=== PATIENT | male | born 1955 | race African-American/Black ===

== ENCOUNTER 2016-11-17 05:50 | Day surgery (SDC) | payer MEDICARE, MEDICAID ==
[~2016-11-17] VITALS: Ht 182.9 cm; Wt 102.1 kg
[2016-11-17] MEDS ORDERED: LACTATED RINGERS 1,000 ML IV SCH (08:00)
[2016-11-17] MEDS ORDERED: BUPIVACAINE HCL/PF 0.5% (5MG/ML) 10ML ONE (09:00)
[2016-11-17] MEDS ORDERED: BACITRACIN ZINC 15GM TUBE TOP ONE (09:00)
[2016-11-17] MEDS ORDERED: MIDAZOLAM HCL 2 MG/2 ML VIAL ONE (09:20)
[2016-11-17] MEDS ORDERED: FENTANYL CITRATE/PF 50MCG/ML 2ML VIAL ONE (09:20)
[2016-11-17] MEDS ORDERED: HYDROMORPHONE HCL/PF 2MG/ML CPJ IV PRN (10:00)
[2016-11-17] MEDS ORDERED: ONDANSETRON HCL 4MG/2ML VIAL IV PRN (10:00)
[2016-11-17] MEDS ORDERED: MEPERIDINE HCL/PF 25MG/ML CPJ IV PRN (10:00)
[2016-11-17] MEDS ORDERED: LABETALOL HCL 20MG/4ML CARPUJECT IV PRN (10:00)
[2016-11-17] MEDS ORDERED: PROPOFOL 200MG/20ML VIAL IV ONE (10:20)
[2016-11-17] MEDS ORDERED: LIDOCAINE HCL 1% 20ML VIAL (Pyxis) INJ ONE (10:20)
[2016-11-17] MEDS ORDERED: SODIUM CHLORIDE 0.9% 10ML VIAL ONE (10:20)
[2016-11-17] MEDS ORDERED: CEFAZOLIN SODIUM 1000MG/VIAL ONE (10:20)
[2016-11-17] MEDS ORDERED: DEXAMETHASONE 4MG/ML 1ML VIAL ONE (10:20)
[2016-11-17] MEDS ORDERED: LABETALOL HCL 5MG/ML VIAL 20ML IV PRN (12:00)
[2016-11-17] MEDS ORDERED: HYDRALAZINE 20MG/ML VIAL IV NR (12:55)
[2016-11-17] MEDS ORDERED: CLON0.3T PO (13:27)
[2016-11-17] MEDS ORDERED: HYDR-3933 PO (13:27)
[2016-11-17] MEDS ORDERED: LISI40TA4 PO (13:27)
[2016-11-17] MEDS ORDERED: HYDR25TA PO (13:27)
== END 2016-11-17 14:30 | disposition home or self-care (01) ==
LOC: OR 05:50
PROVIDERS: ATTEND Urology
DX: N47.1 Phimosis (principal); N47.8 Other disorders of prepuce; I10 Essential (primary) hypertension; Z87.891 Personal history of nicotine dependence; Z91.010 Allergy to peanuts; Z91.018 Allergy to other foods
CPT/HCPCS: 54161; 71010; A4216; J0360; J0690; J1100; J2250; J3010; J3490; J7120; J2704

== ENCOUNTER 2019-02-25 05:02 | Emergency (ER) | payer MEDICARE, MEDICAID ==
[~2019-02-25] VITALS: Ht 180.3 cm; Wt 100.0 kg
[~2019-02-25 05:02] MED LIST: CLON0.3T PO; HYDR-3933 PO; HYDR25TA PO; LISI40TA4 PO
[2019-02-25] MEDS ORDERED: CLONIDINE 0.3MG TABLET PO ONE (06:15)
[2019-02-25] MEDS ORDERED: ACETAMINOPHEN 325MG TABLET PO ONE (06:30)
[2019-02-25 07:35] VITALS: BP 182/115
== END 2019-02-25 07:40 | disposition home or self-care (01) ==
LOC: ER 05:02
DX: I10 Essential (primary) hypertension (principal); M54.30 Sciatica, unspecified side; F17.210 Nicotine dependence, cigarettes, uncomplicated; Z76.0 Encounter for issue of repeat prescription; Z98.890 Other specified postprocedural states; Z71.6 Tobacco abuse counseling; Z91.010 Allergy to peanuts; Z88.8 Allergy status to other drugs, medicaments and biological substances
CPT/HCPCS: 99283; 99406

== ENCOUNTER 2019-03-26 08:41 | Emergency (ER) | payer MEDICARE, MEDICAID ==
[~2019-03-26] VITALS: Ht 180.3 cm; Wt 100.0 kg
[2019-03-26] MEDS ORDERED: LISINOPRIL 40MG TABLET PO ONE (14:30)
[2019-03-26] MEDS ORDERED: CLONIDINE 0.3MG TABLET PO ONE (14:30)
[2019-03-26 17:36] VITALS: BP 154/98
== END 2019-03-26 17:36 | disposition home or self-care (01) ==
LOC: ER 08:46
DX: I10 Essential (primary) hypertension (principal); Z88.8 Allergy status to other drugs, medicaments and biological substances; Z88.2 Allergy status to sulfonamides; Z79.899 Other long term (current) drug therapy
CPT/HCPCS: 99283

== ENCOUNTER 2019-08-10 12:09 | Emergency (ER) | payer MEDICAID, MEDICARE ==
[~2019-08-10] VITALS: Ht 180.3 cm; Wt 100.0 kg
[2019-08-10 14:30] VITALS: BP 155/89
== END 2019-08-10 14:32 | disposition home or self-care (01) ==
LOC: ER 12:09
DX: I10 Essential (primary) hypertension (principal); Z76.0 Encounter for issue of repeat prescription; Z91.010 Allergy to peanuts; Z88.8 Allergy status to other drugs, medicaments and biological substances
CPT/HCPCS: 99283

== ENCOUNTER 2019-10-20 08:53 | Emergency (ER) | payer MEDICARE ==
[~2019-10-20] VITALS: Ht 180.3 cm; Wt 102.0 kg
[2019-10-20 08:58] VITALS: BP 183/135
== END 2019-10-20 09:12 | disposition home or self-care (01) ==
LOC: ER 08:53
DX: I10 Essential (primary) hypertension (principal); Z79.899 Other long term (current) drug therapy; Z88.8 Allergy status to other drugs, medicaments and biological substances; Z76.0 Encounter for issue of repeat prescription
CPT/HCPCS: 99281; 99283

== ENCOUNTER 2019-12-09 04:58 | Emergency (ER) | payer MEDICARE ==
[~2019-12-09] VITALS: Ht 180.3 cm; Wt 105.0 kg
[2019-12-09 05:03] VITALS: BP 185/105
[2019-12-09] MEDS ORDERED: CLONIDINE 0.3MG TABLET PO ONE (05:30)
[2019-12-09] MEDS ORDERED: LISINOPRIL 40MG TABLET PO ONE (05:30)
== END 2019-12-09 06:07 | disposition home or self-care (01) ==
LOC: ER 04:58
DX: I10 Essential (primary) hypertension (principal); Z76.0 Encounter for issue of repeat prescription; Z88.8 Allergy status to other drugs, medicaments and biological substances
CPT/HCPCS: 99283

== ENCOUNTER 2020-05-21 12:28 | Inpatient (IN) | payer MEDICARE ==
[~2020-05-21] VITALS: Ht 180.3 cm; Wt 101.7 kg
[~2020-05-21 12:28] MED LIST changes: +LISI40TA13 PO; -LISI40TA4 PO
[2020-05-21] MEDS ORDERED: ACETAMINOPHEN 325MG TABLET PO STA (12:55)
[2020-05-21] MEDS ORDERED: DILTIAZEM HCL 5MG/ML 5ML VIAL IV ONE (13:00)
[2020-05-21] MEDS ORDERED: SODIUM CHLORIDE 0.9% 1,000 ML IV ONE (13:00)
[2020-05-21 13:41] LABS: HEMATOCRIT. 48.2 % (42.0-52.0); MEAN CORPUSCULAR HEMOGLOBIN 30.3 pg (28.0-32.0); MEAN CORPUSCULAR VOLUME 91.5 fL (80.0-94.0); MEAN PLATELET VOLUME 9.5 fl (7.4-10.4); PLATELET 154 x1000/uL (130-400); RED BLOOD CELL COUNT 5.27 mill/uL (4.7-6.1); RED CELL DISTRIBUTION WIDTH 13.5 % (11.6-14.6)
[2020-05-21 13:48] LABS: CHLORIDE 107 mEq/L (98-107)
[2020-05-21 13:51] LABS: D-DIMER 2.58 mg/L FEU (<0.50); INR 1.1; PROTHROMBIN TIME 11.5 sec (9.6-11.0)
[2020-05-21 14:11] LABS: PLATELET ESTIMATE NORMAL
[2020-05-21] MEDS ORDERED: DILTIAZEM HCL 125 MG in DEXT 5% WATER 100 ML IV ONE (14:30)
[2020-05-21] MEDS ORDERED: ASPIRIN 325MG EC TABLET PO ONE (14:30)
[2020-05-21] MEDS: DILTIAZEM HCL 60MG TABLET PO SCH ×2 (16:34→23:18)
[2020-05-21] MEDS ORDERED: TRAZODONE HCL 50MG TABLET PO PRN (16:45)
[2020-05-21] MEDS: ENOXAPARIN 100MG/ML SYR SUBCUT SCH (16:48)
[2020-05-21 17:21] VITALS: BP 158/85
[2020-05-21 18:01] VITALS: BP 158/85
[2020-05-21 18:30] LABS: CLARITY URINE CLEAR (CLEAR); COLOR URINE YELLOW (YELLOW); KETONES URINE 1+ (NEGATIVE); LEUKOCYTE ESTERASE URINE NEGATIVE (NEGATIVE); NITRITE URINE NEGATIVE (NEGATIVE); OCCULT BLOOD URINE 2+ (NEGATIVE); PROTEIN URINE 1+ (NEGATIVE); SPECIFIC GRAVITY URINE 1.015 (1.005-1.030)
[2020-05-21 19:21] VITALS: BP 163/103
[2020-05-21] MEDS ORDERED: DILTIAZEM HCL 5MG/ML 5ML VIAL IV NR (19:45)
[2020-05-21 21:04] VITALS: BP 152/101
[2020-05-21] MEDS: DILTIAZEM HCL 125 MG in DEXT 5% WATER 100 ML IV SCH (21:05)
[2020-05-21 22:04] VITALS: BP 141/90
[2020-05-21 23:04] VITALS: BP 140/88
[2020-05-21] MEDS: ACETAMINOPHEN 325MG TABLET PO PRN (23:23)
[2020-05-22] VITALS (16 sets, daily range): BP systolic 102–173; BP diastolic 53–111
[2020-05-22] MEDS: ENOXAPARIN 100MG/ML SYR SUBCUT SCH ×2 (06:12→16:17)
[2020-05-22] MEDS: DILTIAZEM HCL 60MG TABLET PO SCH (06:22)
[2020-05-22 06:27] LABS: BASOPHILS % 0.3 % (0.0-2.0); EOSINOPHILS % 0.1 % (0.0-5.0); HEMATOCRIT. 41.8 % (42.0-52.0); HEMOGLOBIN. 13.8 g/dL (14.0-18.0); LYMPHOCYTES % 10.7 % (20.0-50.0); MEAN CORPUSCULAR HEMOGLOBIN 30.4 pg (28.0-32.0); MEAN CORPUSCULAR VOLUME 91.8 fL (80.0-94.0); MEAN PLATELET VOLUME 9.6 fl (7.4-10.4); MONOCYTES % 13.6 % (2.0-8.0); NEUTROPHILS % 75.3 % (40.0-76.0); PLATELET 144 x1000/uL (130-400); RED BLOOD CELL COUNT 4.55 mill/uL (4.7-6.1); RED CELL DISTRIBUTION WIDTH 13.7 % (11.6-14.6)
[2020-05-22 06:34] LABS: CHLORIDE 106 mEq/L (98-107)
[2020-05-22 06:42] LABS: HDL CHOLESTEROL 61 mg/dL (40-59); PHOSPHORUS 2.7 mg/dL (2.5-4.9)
[2020-05-22 06:44] LABS: LDL CHOLESTEROL 93 mg/dL (5-100)
[2020-05-22 06:45] LABS: TOTAL IRON BINDING CAPACITY 325 ug/dL (250-450)
[2020-05-22 06:59] LABS: HEPATITIS B SURFACE ANTIGEN NEGATIVE
[2020-05-22 07:03] LABS: T4 FREE 1.13 ng/dL (0.76-1.46)
[2020-05-22 07:04] LABS: VITAMIN B12 SERUM 234 pg/mL (211-911)
[2020-05-22] MEDS: ASPIRIN 81MG EC TABLET PO SCH (08:11)
[2020-05-22] MEDS: DILTIAZEM HCL 125 MG in DEXT 5% WATER 100 ML IV SCH (09:31)
[2020-05-22] MEDS: ACETAMINOPHEN 325MG TABLET PO PRN (09:33)
[2020-05-22] MEDS: HYDRALAZINE 20MG/ML VIAL IV PRN ×2 (10:28→19:35)
[2020-05-22] MEDS ORDERED: CLONIDINE 0.1MG TABLET PO SCH ×2 (11:30→14:00)
[2020-05-22] MEDS: FERROUS SULFATE 325MG TABLET PO SCH ×2 (12:00→18:34)
[2020-05-22] MEDS ORDERED: DILTIAZEM HCL 90MG TABLET PO SCH (14:00)
[2020-05-22] MEDS ORDERED: TRAMADOL 50MG TABLET PO PRN (15:30)
[2020-05-22] MEDS ORDERED: LOSARTAN POTASSIUM 25 MG TABLET PO ONE (16:00)
[2020-05-22] MEDS: LOSARTAN POTASSIUM 25 MG TABLET PO SCH (16:17)
[2020-05-22] MEDS: APIXABAN 5 MG TABLET PO SCH (18:34)
[2020-05-22] MEDS: DILTIAZEM HCL 180MG CAPSULE CD 24HR PO SCH (18:34)
[2020-05-22] MEDS: ONDANSETRON HCL 4MG/2ML INJ IV PRN (21:08)
[2020-05-22] MEDS: CLONIDINE 0.2MG TABLET PO SCH (22:05)
[2020-05-23] VITALS (64 sets, daily range): BP systolic 103–208; BP diastolic 57–128
[2020-05-23] MEDS: ACETAMINOPHEN 325MG TABLET PO PRN (01:56)
[2020-05-23] MEDS: HYDRALAZINE 20MG/ML VIAL IV PRN ×4 (04:23→15:02)
[2020-05-23] MEDS ORDERED: DILTIAZEM HCL 5MG/ML 5ML VIAL IV NR (05:15)
[2020-05-23] MEDS ORDERED: DILTIAZEM HCL 125 MG in DEXT 5% WATER 100 ML IV PRN (05:15)
[2020-05-23] MEDS: ONDANSETRON HCL 4MG/2ML INJ IV PRN ×3 (05:38→16:37)
[2020-05-23] MEDS: CLONIDINE 0.2MG TABLET PO SCH ×3 (06:00→21:24)
[2020-05-23] MEDS ORDERED: DIGOXIN 500MCG/2ML AMP IV NR (08:15)
[2020-05-23] MEDS ORDERED: IPRATROPIUM BROMIDE (0.02%) 0.5MG/2.5ML NEB HHN PRN (08:45)
[2020-05-23] MEDS ORDERED: IPRATROPIUM BROMIDE (0.02%) 0.5MG/2.5ML NEB ONE (08:49)
[2020-05-23] MEDS: APIXABAN 5 MG TABLET PO SCH (09:00)
[2020-05-23] MEDS: DILTIAZEM HCL 180MG CAPSULE CD 24HR PO SCH ×2 (09:00→16:38)
[2020-05-23] MEDS: LOSARTAN POTASSIUM 25 MG TABLET PO SCH (09:00)
[2020-05-23] MEDS: FERROUS SULFATE 325MG TABLET PO SCH ×2 (09:00→16:38)
[2020-05-23] MEDS: ASPIRIN 81MG EC TABLET PO SCH (09:00)
[2020-05-23 09:08] LABS: BG BASE EXCESS -0.9 mmol/L (-2.0-2.0); BG CARBOXYHEMOGLOBIN 0.1 % (0.5-1.5); BG DEOXYHEMOGLOBIN 1.1 % (0.0-5.0); BG FRACTION INSPIRED OXYGEN 32; BG HCO3 ACT 18.2 mmol/L (22.0-26.0); BG METHEMOGLOBIN 0.3 % (0.0-1.5); BG OXYGEN SATURATION 98.9 % (92.0-98.5); BG OXYHEMOGLOBIN 98.5 % (94.0-97.0); BG PCO2 19.9 mmHg (35.0-45.0); BG PH 7.578 (7.350-7.450); BG PO2 136.9 mmHg (75.0-100.0); BG SAMPLE SITE RIGHT RADIAL; BG VENT MODE NASAL CANNULA
[2020-05-23 09:23] LABS: HEMATOCRIT. 46.5 % (42.0-52.0); HEMOGLOBIN. 15.3 g/dL (14.0-18.0); MEAN CORPUSCULAR VOLUME 91.2 fL (80.0-94.0); MEAN PLATELET VOLUME 9.2 fl (7.4-10.4); PLATELET 219 x1000/uL (130-400); RED CELL DISTRIBUTION WIDTH 13.7 % (11.6-14.6)
[2020-05-23 09:30] LABS: CHLORIDE 104 mEq/L (98-107)
[2020-05-23] MEDS ORDERED: METOCLOPRAMIDE HCL 10MG/2ML VIAL IV NR (09:30)
[2020-05-23] MEDS ORDERED: METOCLOPRAMIDE HCL 10MG/2ML VIAL IV PRN (09:30)
[2020-05-23] MEDS ORDERED: DILTIAZEM HCL 120MG TABLET PO SCH (09:45)
[2020-05-23] MEDS ORDERED: ENALAPRIL 2.5MG/2ML VIAL 2ML IV SCH (09:45)
[2020-05-23] MEDS ORDERED: HYDRALAZINE 20MG/ML VIAL IV SCH (09:45)
[2020-05-23] MEDS ORDERED: LIDOCAINE HCL/PF 1% 2ML VIAL ONE (10:00)
[2020-05-23] MEDS ORDERED: DOXAZOSIN MESYLATE 2MG TABLET PO NR (10:00)
[2020-05-23 10:33] LABS: AMYLASE 55 IU/L (25-115)
[2020-05-23] MEDS ORDERED: LORAZEPAM 2MG/ML CPJ IV PRN ×2 (10:45→22:45)
[2020-05-23] MEDS ORDERED: LORAZEPAM 2MG/ML CPJ IV NR ×2 (10:45→19:00)
[2020-05-23 11:01] LABS: *AMPHETAMINES SCREEN URINE NEGATIVE (NEGATIVE)
[2020-05-23 11:02] LABS: *BARBITURATES SCREEN URINE NEGATIVE (NEGATIVE); *BENZODIAZEPINES SCREEN URINE NEGATIVE (NEGATIVE); *COCAINE SCREEN URINE NEGATIVE (NEGATIVE); CANNABINOID URINE SCREEN NEGATIVE (NEGATIVE); METHADONE URINE SCREEN NEGATIVE (NEGATIVE); OPIATES URINE SCREEN NEGATIVE (NEGATIVE); PHENCYCLIDINE URINE SCREEN NEGATIVE (NEGATIVE)
[2020-05-23 11:14] LABS: PLATELET ESTIMATE NORMAL
[2020-05-23] MEDS: NITROPRUSSIDE 100 MG in DEXT 5% WATER 246 ML IV PRN ×2 (11:25→20:01)
[2020-05-23] MEDS: DILTIAZEM HCL 125 MG in DEXT 5% WATER 100 ML IV PRN ×2 (12:18→21:25)
[2020-05-23] MEDS ORDERED: POTASSIUM CHLORIDE INJ 40 MEQ in DEXT 5% WATER 250 ML IV NR (12:30)
[2020-05-23] MEDS: DOXAZOSIN MESYLATE 2MG TABLET PO SCH ×2 (14:04→16:38)
[2020-05-23] MEDS: SODIUM CHLORIDE 0.9% 1,000 ML IV SCH (14:55)
[2020-05-23] MEDS ORDERED: ENOXAPARIN 100MG/ML SYR SUBCUT NR (16:00)
[2020-05-23] MEDS ORDERED: FAMOTIDINE 20MG/2ML VIAL IV SCH (21:00)
[2020-05-23] MEDS: IPRATROPIUM BROMIDE (0.02%) 0.5MG/2.5ML NEB HHN SCH (21:02)
[2020-05-24 00:18] VITALS: BP 138/42
[2020-05-24 00:30] VITALS: BP 144/93
[2020-05-24 00:47] VITALS: BP 140/93
[2020-05-24] MEDS: IPRATROPIUM BROMIDE (0.02%) 0.5MG/2.5ML NEB HHN SCH (02:17)
[2020-05-24] MEDS: SODIUM CHLORIDE 0.9% 1,000 ML IV SCH (03:50)
[2020-05-24] MEDS: NITROPRUSSIDE 100 MG in DEXT 5% WATER 246 ML IV PRN (04:59)
[2020-05-24] MEDS ORDERED: METOPROLOL TARTRATE 5MG/5ML VIAL IV NR (20:30)
== END 2020-05-24 05:50 | disposition left against medical advice (07) | DRG 280 ==
LOC: ER 12:28 → 3WST 14:32 → EDBEDREQSVC 14:35 → EDBEDREQ 14:35 → ENRESERV 16:10 → CVICU 05-23 11:14
PROVIDERS: ADMIT Family Medicine Adult Medicine; ATTEND Family Medicine Adult Medicine
DX: I21.A1 Myocardial infarction type 2 (principal); J96.00 Acute respiratory failure, unspecified whether with hypoxia or hypercapnia; N17.9 Acute kidney failure, unspecified; R65.10 Systemic inflammatory response syndrome (SIRS) of non-infectious origin without acute organ dysfunction; I16.1 Hypertensive emergency; I48.91 Unspecified atrial fibrillation; E80.6 Other disorders of bilirubin metabolism; R74.01 Elevation of levels of liver transaminase levels; F41.9 Anxiety disorder, unspecified; E87.6 Hypokalemia; R79.89 Other specified abnormal findings of blood chemistry; Z53.29 Procedure and treatment not carried out because of patient's decision for other reasons; I11.9 Hypertensive heart disease without heart failure; Z20.822 Contact with and (suspected) exposure to COVID-19; D64.9 Anemia, unspecified; Z91.14 Patient's other noncompliance with medication regimen; Z87.891 Personal history of nicotine dependence; Z88.8 Allergy status to other drugs, medicaments and biological substances; Z91.010 Allergy to peanuts; Z79.899 Other long term (current) drug therapy
CPT/HCPCS: 36415; 36600; 71045; 74018; 76700; 78580; 80048; 80053; 80061; 80076; 80305; 81003; 82150; 82375; 82550; 82553; 82607; 82805; 82962; 83540; 83550; 83605; 83735; 83880; 84100; 84145; 84439; 84443; 84481; 84484; 85025; 85044; 85379; 86803; 87340; 87426; 87804; 93005; 93306; 93970; 94640; 99291; J0360; J1160; J1650; J2060; J2270; J2405; J2765; J3480; J3490; J7030; J7060

== ENCOUNTER 2020-05-24 17:31 | Inpatient (IN) | payer MEDICARE ==
[~2020-05-24] VITALS: Ht 180.3 cm; Wt 100.0 kg
[~2020-05-24 17:31] MED LIST changes: -HYDR-3933 PO
[2020-05-24] MEDS ORDERED: DILTIAZEM HCL 5MG/ML 5ML VIAL IV ONE ×2 (18:15→18:45)
[2020-05-24 18:21] LABS: HEMATOCRIT. 46.3 % (42.0-52.0); HEMOGLOBIN. 15.5 g/dL (14.0-18.0); MEAN CORPUSCULAR HEMOGLOBIN 30.6 pg (28.0-32.0); MEAN CORPUSCULAR VOLUME 91.4 fL (80.0-94.0); MEAN PLATELET VOLUME 8.7 fl (7.4-10.4); PLATELET 242 x1000/uL (130-400); RED BLOOD CELL COUNT 5.06 mill/uL (4.7-6.1); RED CELL DISTRIBUTION WIDTH 13.9 % (11.6-14.6)
[2020-05-24 19:01] LABS: PLATELET ESTIMATE NORMAL
[2020-05-24] MEDS ORDERED: DILTIAZEM HCL 125 MG in DEXT 5% WATER 100 ML IV ONE (19:15)
[2020-05-24] MEDS ORDERED: DILTIAZEM HCL 125 MG in DEXTROSE 5% WATER 125 ML IV PRN (20:00)
[2020-05-24] MEDS ORDERED: DIGOXIN 500MCG/2ML AMP IV ONE (20:30)
[2020-05-24] MEDS ORDERED: ESMOLOL 2500MG PREMIX 250 ML IV ONE (20:30)
[2020-05-24] MEDS ORDERED: NITROGLYCERIN 0.1MG/HR PATCH TOP NR (21:00)
[2020-05-24] MEDS ORDERED: LORAZEPAM 2MG/ML CPJ IV ONE (21:45)
[2020-05-24] MEDS ORDERED: SODIUM CHLORIDE 0.9% INJ 3ML FLUSH IVF SCH (22:00)
[2020-05-24] MEDS ORDERED: ACETAMINOPHEN 325MG TABLET PO PRN (22:00)
[2020-05-24] MEDS ORDERED: GUAIFENESIN 200MG/10ML SUGAR FREE UDC PO PRN (22:00)
[2020-05-24] MEDS ORDERED: MAGNESIUM/ALUMINUM HYDROXIDE/SIMETHICONE 30ML UDC PO PRN (22:00)
[2020-05-24] MEDS ORDERED: LORAZEPAM 2MG/ML CPJ IV PRN (22:00)
[2020-05-24] MEDS ORDERED: HYDRALAZINE 20MG/ML VIAL IV PRN (22:00)
[2020-05-24] MEDS ORDERED: ONDANSETRON HCL 4MG/2ML INJ IV PRN (22:00)
[2020-05-24] MEDS ORDERED: DOCUSATE SODIUM 100MG CAPSULE PO PRN (22:00)
[2020-05-24] MEDS ORDERED: ESMOLOL 2500MG PREMIX 250 ML IV PRN (22:00)
[2020-05-24] MEDS ORDERED: MORPHINE SULFATE 2 MG/ML CPJ (NOT FOR IM USE) IV PRN (22:00)
[2020-05-24] MEDS ORDERED: IPRATROPIUM/ALBUTEROL 0.5-3(2.5)MG/3ML NEB HHN PRN (22:00)
[2020-05-24] MEDS ORDERED: HYDROCODONE/ACETAMINOPHEN 5/325MG TABLET PO PRN (22:00)
[2020-05-24] MEDS: ESMOLOL 2500MG PREMIX 250 ML IV ONE ×2 (22:08→22:10)
[2020-05-24 23:43] LABS: CREATINE KINASE MB FRACTION 10.9 ng/mL (0.5-3.6)
[2020-05-25 00:28] VITALS: BP 198/98
[2020-05-25] MEDS ORDERED: ENOXAPARIN 30MG/0.3ML SYR SUBCUT SCH (09:00)
== END 2020-05-25 07:16 | disposition left against medical advice (07) | DRG 281 ==
LOC: ER 17:31 → MICUSO 20:48
PROVIDERS: ADMIT Internal Medicine; ATTEND Internal Medicine
DX: I21.4 Non-ST elevation (NSTEMI) myocardial infarction (principal); I47.1 Supraventricular tachycardia; I16.1 Hypertensive emergency; R65.10 Systemic inflammatory response syndrome (SIRS) of non-infectious origin without acute organ dysfunction; N17.9 Acute kidney failure, unspecified; I10 Essential (primary) hypertension; F41.9 Anxiety disorder, unspecified; Z53.29 Procedure and treatment not carried out because of patient's decision for other reasons; I48.91 Unspecified atrial fibrillation; D64.9 Anemia, unspecified; Z91.14 Patient's other noncompliance with medication regimen; Z79.899 Other long term (current) drug therapy
CPT/HCPCS: 36415; 71045; 80048; 82550; 82553; 84484; 85025; 93005; 93970; 99291; J0360; J1160; J2060; J2270; J3490; J7060

== ENCOUNTER 2020-05-26 10:35 | Inpatient (IN) | payer MEDICARE ==
[2020-05-26] VITALS (13 sets, daily range): BP systolic 173–220; BP diastolic 91–139
[~2020-05-26] VITALS: Ht 180.3 cm; Wt 93.5 kg
[2020-05-26] MEDS ORDERED: DILTIAZEM HCL 5MG/ML 5ML VIAL IV ONE ×2 (11:00→14:30)
[2020-05-26 11:34] LABS: BASOPHILS % 0.7 % (0.0-2.0); EOSINOPHILS % 0.4 % (0.0-5.0); HEMATOCRIT. 43.4 % (42.0-52.0); HEMOGLOBIN. 14.5 g/dL (14.0-18.0); LYMPHOCYTES % 14.3 % (20.0-50.0); MEAN CORPUSCULAR HEMOGLOBIN 30.5 pg (28.0-32.0); MEAN CORPUSCULAR VOLUME 91.1 fL (80.0-94.0); MEAN PLATELET VOLUME 8.8 fl (7.4-10.4); MONOCYTES % 12.8 % (2.0-8.0); NEUTROPHILS % 71.8 % (40.0-76.0); PLATELET 316 x1000/uL (130-400); RED BLOOD CELL COUNT 4.77 mill/uL (4.7-6.1); RED CELL DISTRIBUTION WIDTH 13.8 % (11.6-14.6)
[2020-05-26 11:43] LABS: CHLORIDE 108 mEq/L (98-107)
[2020-05-26] MEDS ORDERED: DILTIAZEM HCL 120MG CAPSULE CD 24HR PO ONE (11:45)
[2020-05-26] MEDS ORDERED: DILTIAZEM HCL 125 MG in DEXT 5% WATER 100 ML IV ONE ×2 (12:30→13:00)
[2020-05-26] MEDS ORDERED: ENOXAPARIN 80MG/0.8ML SYR SUBCUT ONE (14:30)
[2020-05-26] MEDS ORDERED: ACETAMINOPHEN 325MG TABLET PO PRN (14:45)
[2020-05-26] MEDS ORDERED: DOCUSATE SODIUM 100MG CAPSULE PO PRN (14:45)
[2020-05-26] MEDS ORDERED: MAGNESIUM/ALUMINUM HYDROXIDE/SIMETHICONE 30ML UDC PO PRN (14:45)
[2020-05-26] MEDS ORDERED: IPRATROPIUM/ALBUTEROL 0.5-3(2.5)MG/3ML NEB HHN PRN (14:45)
[2020-05-26] MEDS ORDERED: DILTIAZEM HCL 125 MG in DEXT 5% WATER 100 ML IV PRN (14:45)
[2020-05-26] MEDS ORDERED: GUAIFENESIN 200MG/10ML SUGAR FREE UDC PO PRN (14:45)
[2020-05-26] MEDS: ONDANSETRON HCL 4MG/2ML INJ IV PRN ×2 (16:56→22:09)
[2020-05-26] MEDS: LORAZEPAM 2MG/ML CPJ IV PRN ×2 (17:25→23:48)
[2020-05-26] MEDS: HYDRALAZINE 20MG/ML VIAL IV PRN ×2 (17:41→23:58)
[2020-05-26] MEDS: CLONIDINE 0.1MG TABLET PO PRN (19:10)
[2020-05-26] MEDS ORDERED: ENOXAPARIN 40MG/0.4ML SYR SUBCUT NR ×2 (22:00)
[2020-05-26] MEDS: MORPHINE SULFATE 2 MG/ML CPJ (NOT FOR IM USE) IV PRN (22:10)
[2020-05-26] MEDS: SODIUM CHLORIDE 0.9% INJ 3ML FLUSH IVF SCH (22:10)
[2020-05-26] MEDS ORDERED: HYDRALAZINE 20MG/ML VIAL IV SCH (22:30)
[2020-05-26] MEDS: DILTIAZEM HCL 125 MG in DEXT 5% WATER 100 ML IV PRN (22:40)
[2020-05-26] MEDS: HYDROCODONE/ACETAMINOPHEN 5/325MG TABLET PO PRN (23:58)
[2020-05-27] VITALS (95 sets, daily range): BP systolic 88–205; BP diastolic 38–137
[2020-05-27 00:37] LABS: CREATINE KINASE MB FRACTION 17.8 ng/mL (0.5-3.6)
[2020-05-27] MEDS: CLONIDINE 0.1MG TABLET PO PRN ×2 (01:20→07:19)
[2020-05-27] MEDS ORDERED: HYDRALAZINE HCL 25MG TABLET PO SCH (03:00)
[2020-05-27] MEDS: ONDANSETRON HCL 4MG/2ML INJ IV PRN (04:19)
[2020-05-27] MEDS: SODIUM CHLORIDE 0.9% INJ 3ML FLUSH IVF SCH ×3 (05:49→21:20)
[2020-05-27 06:18] LABS: BASOPHILS % 0.3 % (0.0-2.0); EOSINOPHILS % 0.2 % (0.0-5.0); HEMATOCRIT. 41.5 % (42.0-52.0); HEMOGLOBIN. 13.8 g/dL (14.0-18.0); LYMPHOCYTES % 13.2 % (20.0-50.0); MEAN CORPUSCULAR HEMOGLOBIN 30.2 pg (28.0-32.0); MEAN CORPUSCULAR VOLUME 91.1 fL (80.0-94.0); MEAN PLATELET VOLUME 8.1 fl (7.4-10.4); MONOCYTES % 11.5 % (2.0-8.0); NEUTROPHILS % 74.8 % (40.0-76.0); PLATELET 332 x1000/uL (130-400); RED BLOOD CELL COUNT 4.56 mill/uL (4.7-6.1); RED CELL DISTRIBUTION WIDTH 13.9 % (11.6-14.6)
[2020-05-27 06:30] LABS: CHLORIDE 107 mEq/L (98-107)
[2020-05-27 06:39] LABS: CREATINE KINASE 443 IU/L (39-308)
[2020-05-27 06:41] LABS: CREATINE KINASE MB FRACTION 13.1 ng/mL (0.5-3.6)
[2020-05-27] MEDS: DILTIAZEM HCL 125 MG in DEXT 5% WATER 100 ML IV PRN ×2 (06:54→16:25)
[2020-05-27] MEDS: HYDRALAZINE 20MG/ML VIAL IV PRN ×2 (07:56→17:23)
[2020-05-27] MEDS ORDERED: POTASSIUM CHLORIDE 20MEQ TABLET SR PO SCH (08:15)
[2020-05-27] MEDS ORDERED: ONDANSETRON HCL 4MG/2ML INJ IV PRN (08:45)
[2020-05-27] MEDS ORDERED: ENOXAPARIN 40MG/0.4ML SYR SUBCUT SCH (09:00)
[2020-05-27] MEDS: HYDRALAZINE HCL 25MG TABLET PO PRN (09:47)
[2020-05-27] MEDS ORDERED: DILTIAZEM HCL 120MG CAPSULE CD 24HR PO SCH (10:45)
[2020-05-27] MEDS: DOXAZOSIN MESYLATE 2MG TABLET PO SCH ×2 (11:43→16:08)
[2020-05-27] MEDS: ENOXAPARIN 100MG/ML SYR SUBCUT SCH (12:21)
[2020-05-27] MEDS: MORPHINE SULFATE 2 MG/ML CPJ (NOT FOR IM USE) IV PRN (15:13)
[2020-05-27] MEDS ORDERED: MAGNESIUM/ALUMINUM HYDROXIDE/SIMETHICONE 30ML UDC PO PRN (16:00)
[2020-05-27] MEDS: PANTOPRAZOLE SODIUM 40 MG/VIAL IV SCH (16:07)
[2020-05-27] MEDS: HYDROCODONE/ACETAMINOPHEN 5/325MG TABLET PO PRN ×2 (16:08→21:28)
[2020-05-27] MEDS ORDERED: ENOXAPARIN 100MG/ML SYR SUBCUT SCH (20:00)
[2020-05-27] MEDS: DILTIAZEM HCL 180MG CAPSULE CD 24HR PO SCH (21:18)
[2020-05-28] VITALS (86 sets, daily range): BP systolic 116–182; BP diastolic 66–110
[2020-05-28] MEDS: ENOXAPARIN 100MG/ML SYR SUBCUT SCH ×3 (00:15→21:34)
[2020-05-28] MEDS: DILTIAZEM HCL 125 MG in DEXT 5% WATER 100 ML IV PRN (04:43)
[2020-05-28] MEDS: SODIUM CHLORIDE 0.9% INJ 3ML FLUSH IVF SCH ×3 (05:45→21:34)
[2020-05-28 05:53] LABS: BASOPHILS % 0.9 % (0.0-2.0); EOSINOPHILS % 0.4 % (0.0-5.0); HEMATOCRIT. 41.4 % (42.0-52.0); HEMOGLOBIN. 13.6 g/dL (14.0-18.0); LYMPHOCYTES % 15.1 % (20.0-50.0); MEAN CORPUSCULAR HEMOGLOBIN 29.9 pg (28.0-32.0); MEAN CORPUSCULAR VOLUME 90.6 fL (80.0-94.0); MEAN PLATELET VOLUME 7.9 fl (7.4-10.4); MONOCYTES % 10.5 % (2.0-8.0); NEUTROPHILS % 73.1 % (40.0-76.0); PLATELET 358 x1000/uL (130-400); RED BLOOD CELL COUNT 4.57 mill/uL (4.7-6.1); RED CELL DISTRIBUTION WIDTH 13.7 % (11.6-14.6)
[2020-05-28 06:04] LABS: PHOSPHORUS 3.6 mg/dL (2.5-4.9)
[2020-05-28] MEDS: PANTOPRAZOLE SODIUM 40 MG/VIAL IV SCH (08:36)
[2020-05-28] MEDS: DOXAZOSIN MESYLATE 2MG TABLET PO SCH ×2 (08:37→16:47)
[2020-05-28] MEDS: DILTIAZEM HCL 180MG CAPSULE CD 24HR PO SCH ×2 (08:37→21:33)
[2020-05-28] MEDS ORDERED: POTASSIUM CHLORIDE 20MEQ TABLET SR PO NR (09:15)
[2020-05-28] MEDS ORDERED: POTASSIUM CHLORIDE 20MEQ TABLET SR PO ONE (09:30)
[2020-05-28 12:12] LABS: CLARITY URINE CLEAR (CLEAR); COLOR URINE YELLOW (YELLOW); KETONES URINE 1+ (NEGATIVE); LEUKOCYTE ESTERASE URINE NEGATIVE (NEGATIVE); NITRITE URINE NEGATIVE (NEGATIVE); OCCULT BLOOD URINE TRACE (NEGATIVE); PH URINE 5.5 (4.5-8.0); PROTEIN URINE 1+ (NEGATIVE); SPECIFIC GRAVITY URINE 1.029 (1.005-1.030)
[2020-05-28 12:43] LABS: *AMPHETAMINES SCREEN URINE NEGATIVE (NEGATIVE)
[2020-05-28 12:44] LABS: *BARBITURATES SCREEN URINE NEGATIVE (NEGATIVE); *BENZODIAZEPINES SCREEN URINE NEGATIVE (NEGATIVE); *COCAINE SCREEN URINE NEGATIVE (NEGATIVE)
[2020-05-28 12:45] LABS: CANNABINOID URINE SCREEN NEGATIVE (NEGATIVE); METHADONE URINE SCREEN NEGATIVE (NEGATIVE); OPIATES URINE SCREEN PRESUMTIVE POSITIVE (NEGATIVE); PHENCYCLIDINE URINE SCREEN NEGATIVE (NEGATIVE)
[2020-05-29] VITALS (29 sets, daily range): BP systolic 125–175; BP diastolic 70–111
[2020-05-29] MEDS: HYDRALAZINE HCL 25MG TABLET PO PRN (03:18)
[2020-05-29] MEDS: SODIUM CHLORIDE 0.9% INJ 3ML FLUSH IVF SCH (06:00)
[2020-05-29 06:55] LABS: BASOPHILS % 0.7 % (0.0-2.0); EOSINOPHILS % 0.6 % (0.0-5.0); HEMATOCRIT. 36.9 % (42.0-52.0); HEMOGLOBIN. 12.6 g/dL (14.0-18.0); LYMPHOCYTES % 19.1 % (20.0-50.0); MEAN CORPUSCULAR HEMOGLOBIN 30.9 pg (28.0-32.0); MEAN CORPUSCULAR VOLUME 90.5 fL (80.0-94.0); MONOCYTES % 11.4 % (2.0-8.0); NEUTROPHILS % 68.2 % (40.0-76.0); PLATELET 353 x1000/uL (130-400); RED BLOOD CELL COUNT 4.08 mill/uL (4.7-6.1); RED CELL DISTRIBUTION WIDTH 13.8 % (11.6-14.6)
[2020-05-29 07:01] LABS: PROTHROMBIN TIME 11.1 sec (9.6-11.0)
[2020-05-29] MEDS: CLONIDINE 0.1MG TABLET PO PRN (07:01)
[2020-05-29 07:18] LABS: PHOSPHORUS 2.8 mg/dL (2.5-4.9)
[2020-05-29] MEDS: DILTIAZEM HCL 180MG CAPSULE CD 24HR PO SCH (08:50)
[2020-05-29] MEDS: PANTOPRAZOLE SODIUM 40 MG/VIAL IV SCH (08:50)
[2020-05-29] MEDS: ENOXAPARIN 100MG/ML SYR SUBCUT SCH (08:51)
[2020-05-29] MEDS: DOXAZOSIN MESYLATE 2MG TABLET PO SCH (08:51)
[2020-05-29] MEDS ORDERED: HYDRALAZINE HCL 100MG TABLET PO SCH (09:00)
[2020-05-29] MEDS ORDERED: POTASSIUM CHLORIDE 20MEQ/PACKET PO SCH (09:00)
[2020-05-29 09:30] LABS: TOTAL IRON BINDING CAPACITY 264 ug/dL (250-450)
[2020-05-31 05:09] LABS: DOPAMINE PLASMA 138 pg/mL (0-48); EPINEPHRINE PLASMA 186 pg/mL (0-62); NOREPINEPHRINE PLASMA 2252 pg/mL (0-874)
== END 2020-05-29 13:15 | disposition home or self-care (01) | DRG 308 ==
LOC: ER 11:05 → CVICU 13:04 → EDBEDREQ 13:13 → EDBEDREQSVC 13:13 → CANRESERV 13:36 → ENRESERV 13:36 → EDBEDREQSVC 15:27 → ENRESERV 20:02
PROVIDERS: ADMIT Internal Medicine; ATTEND Internal Medicine
DX: I48.91 Unspecified atrial fibrillation (principal); N17.0 Acute kidney failure with tubular necrosis; M62.82 Rhabdomyolysis; E87.6 Hypokalemia; I13.10 Hypertensive heart and chronic kidney disease without heart failure, with stage 1 through stage 4 chronic kidney disease, or unspecified chronic kidney disease; N18.9 Chronic kidney disease, unspecified; R77.8 Other specified abnormalities of plasma proteins; R74.01 Elevation of levels of liver transaminase levels; R10.9 Unspecified abdominal pain; Z91.14 Patient's other noncompliance with medication regimen; I25.2 Old myocardial infarction; Z91.19 Patient's noncompliance with other medical treatment and regimen; Z88.8 Allergy status to other drugs, medicaments and biological substances; Z91.010 Allergy to peanuts; Z79.899 Other long term (current) drug therapy
CPT/HCPCS: 36415; 71045; 80048; 80053; 80305; 81003; 82550; 82553; 83540; 83550; 83735; 83835; 83880; 84100; 84484; 85025; 93005; 93970; 96365; 99291; C9113; J0360; J1650; J2060; J2270; J2405; J3490; J7060

== ENCOUNTER 2022-02-18 21:09 | Inpatient (IN) | payer MEDICARE, MEDICAID ==
[~2022-02-18] VITALS: Ht 180.3 cm; Wt 100.3 kg
[2022-02-18] MEDS ORDERED: VISCOUS LIDOCAINE 2% 15 ML UDC PO STA (22:22)
[2022-02-18] MEDS ORDERED: MAGNESIUM/ALUMINUM HYDROXIDE/SIMETHICONE 30ML UDC PO STA (22:22)
[2022-02-18] MEDS ORDERED: ONDANSETRON HCL 4MG/2ML INJ IV STA (22:22)
[2022-02-18] MEDS ORDERED: SODIUM CHLORIDE 0.9% 1,000 ML IV ONE (22:30)
[2022-02-18 23:07] LABS: HEMATOCRIT. 50.9 % (42.0-52.0); MEAN CORPUSCULAR HEMOGLOBIN 30.9 pg (28.0-32.0); MEAN CORPUSCULAR VOLUME 92.3 fL (80.0-94.0); MEAN PLATELET VOLUME 8.8 fl (7.4-10.4); PLATELET 271 x1000/uL (130-400); RED BLOOD CELL COUNT 5.51 mill/uL (4.7-6.1); RED CELL DISTRIBUTION WIDTH 14.3 % (11.6-14.6)
[2022-02-18 23:16] LABS: CHLORIDE 104 mEq/L (98-107)
[2022-02-18 23:25] LABS: ETHANOL BLOOD < 10 mg/dL
[2022-02-18] MEDS ORDERED: SODIUM CHLORIDE 0.9% 1000ML BAG (SEPSIS BOLUS) IV ONE (23:30)
[2022-02-18 23:35] LABS: PLATELET ESTIMATE NORMAL
[2022-02-19] VITALS (29 sets, daily range): BP systolic 150–246; BP diastolic 103–159
[2022-02-19] MEDS ORDERED: MORPHINE SULFATE 4 MG/ML CPJ (NOT FOR IM USE) IV NR (00:15)
[2022-02-19] MEDS ORDERED: ONDANSETRON HCL 4MG/2ML INJ IV NR (00:15)
[2022-02-19] MEDS ORDERED: ASPIRIN 325MG EC TABLET PO NR (03:00)
[2022-02-19] MEDS: SODIUM CHLORIDE 0.9% 1,000 ML IV SCH ×2 (07:30→18:15)
[2022-02-19] MEDS ORDERED: LORAZEPAM 2MG/ML CPJ IV PRN (07:30)
[2022-02-19] MEDS: ONDANSETRON HCL 4MG/2ML INJ IV PRN ×2 (08:17→17:53)
[2022-02-19] MEDS: MORPHINE SULFATE 2 MG/ML CPJ (NOT FOR IM USE) IV PRN ×2 (08:18→18:04)
[2022-02-19] MEDS ORDERED: CLONIDINE 0.1MG TABLET PO SCH (09:00)
[2022-02-19] MEDS ORDERED: LEVOFLOXACIN 500MG PREMIX 100 ML IV SCH (09:00)
[2022-02-19] MEDS: THIAMINE HCL 100MG TABLET PO SCH ×2 (09:00→09:25)
[2022-02-19] MEDS: NITROGLYCERIN 50MG PREMIX 250 ML IV PRN ×2 (09:16→19:29)
[2022-02-19] MEDS ORDERED: ENOXAPARIN 40MG/0.4ML SYR SUBCUT SCH (10:00)
[2022-02-19] MEDS: METRONIDAZOLE 500 MG PREMIX 100 ML IV SCH ×3 (12:36→20:59)
[2022-02-19] MEDS: HYDROCODONE/ACETAMINOPHEN 5/325MG TABLET PO PRN ×2 (14:35→19:42)
[2022-02-19] MEDS ORDERED: NALOXONE HCL 0.4MG/ML VIAL IV PRN (14:45)
[2022-02-19 18:37] LABS: *AMPHETAMINES SCREEN URINE NEGATIVE (NEGATIVE); *BARBITURATES SCREEN URINE NEGATIVE (NEGATIVE); *BENZODIAZEPINES SCREEN URINE NEGATIVE (NEGATIVE); *COCAINE SCREEN URINE NEGATIVE (NEGATIVE); CANNABINOID URINE SCREEN NEGATIVE (NEGATIVE); METHADONE URINE SCREEN NEGATIVE (NEGATIVE); OPIATES URINE SCREEN PRESUMTIVE POSITIVE (NEGATIVE); PHENCYCLIDINE URINE SCREEN NEGATIVE (NEGATIVE)
[2022-02-19] MEDS: HYDRALAZINE 20MG/ML VIAL IV PRN (18:43)
[2022-02-19] MEDS: NITROPRUSSIDE 100 MG in DEXT 5% WATER 246 ML IV PRN (18:59)
[2022-02-19] MEDS ORDERED: HYDROMORPHONE HCL/PF 2MG/ML CPJ IV PRN (20:30)
[2022-02-19] MEDS: CLONIDINE 0.1MG TABLET PO SCH (20:59)
[2022-02-19] MEDS ORDERED: CLONIDINE HCL 0.2MG/24HR PATCH TD SCH (21:00)
[2022-02-19] MEDS: DILTIAZEM HCL 125 MG in DEXT 5% WATER 100 ML IV PRN (21:31)
[2022-02-19] MEDS ORDERED: ADENOSINE 3 MG/ML 2ML VIAL IV NR ×2 (22:15→22:30)
[2022-02-19] MEDS ORDERED: SODIUM CHLORIDE 0.9% 500 ML IV ONE ×2 (22:45→23:45)
[2022-02-19] MEDS ORDERED: DIGOXIN 500MCG/2ML AMP IV NR (22:45)
[2022-02-19] MEDS ORDERED: AMIODARONE HCL 900 MG in DEXT 5% WATER 482 ML IV PRN (23:00)
[2022-02-19] MEDS: HYDRALAZINE 20MG/ML VIAL IV SCH (23:23)
[2022-02-19] MEDS ORDERED: AMIODARONE HCL 150 MG in DEXT 5% WATER 100 ML IV NR (23:30)
[2022-02-20] VITALS (71 sets, daily range): BP systolic 110–224; BP diastolic 65–149
[2022-02-20] MEDS: MORPHINE SULFATE 2 MG/ML CPJ (NOT FOR IM USE) IV PRN ×4 (04:29→23:46)
[2022-02-20] MEDS: ONDANSETRON HCL 4MG/2ML INJ IV PRN (04:29)
[2022-02-20] MEDS: HYDRALAZINE 20MG/ML VIAL IV SCH (05:48)
[2022-02-20] MEDS: CLONIDINE 0.1MG TABLET PO SCH ×3 (05:49→22:00)
[2022-02-20] MEDS: METRONIDAZOLE 500 MG PREMIX 100 ML IV SCH ×3 (05:49→20:33)
[2022-02-20] MEDS: NITROPRUSSIDE 100 MG in DEXT 5% WATER 246 ML IV PRN ×3 (05:50→17:12)
[2022-02-20] MEDS: HYDROCODONE/ACETAMINOPHEN 5/325MG TABLET PO PRN (06:40)
[2022-02-20 07:10] LABS: HEMATOCRIT. 40.9 % (42.0-52.0); HEMOGLOBIN. 13.4 g/dL (14.0-18.0); MEAN CORPUSCULAR HEMOGLOBIN 30.3 pg (28.0-32.0); MEAN CORPUSCULAR VOLUME 92.3 fL (80.0-94.0); MEAN PLATELET VOLUME 8.4 fl (7.4-10.4); PLATELET 239 x1000/uL (130-400); RED BLOOD CELL COUNT 4.43 mill/uL (4.7-6.1); RED CELL DISTRIBUTION WIDTH 14.4 % (11.6-14.6)
[2022-02-20] MEDS: DILTIAZEM HCL 125 MG in DEXT 5% WATER 100 ML IV PRN ×2 (07:10→15:52)
[2022-02-20] MEDS ORDERED: FUROSEMIDE 40MG/4ML VIAL IVP SCH (07:15)
[2022-02-20 07:28] LABS: PHOSPHORUS 1.1 mg/dL (2.5-4.9)
[2022-02-20] MEDS ORDERED: DILTIAZEM HCL 5MG/ML 5ML VIAL IV PRN (08:45)
[2022-02-20 08:56] LABS: PLATELET ESTIMATE NORMAL
[2022-02-20] MEDS: THIAMINE HCL 100MG TABLET PO SCH (09:00)
[2022-02-20] MEDS: DILTIAZEM HCL 90MG TABLET PO SCH ×3 (09:00→22:00)
[2022-02-20] MEDS: HYDRALAZINE HCL 50MG TABLET PO SCH ×3 (09:00→16:52)
[2022-02-20] MEDS ORDERED: HYDRALAZINE HCL 10MG TABLET PO SCH (09:00)
[2022-02-20] MEDS ORDERED: SODIUM CHLORIDE 0.9% 500 ML IV NR (10:15)
[2022-02-20] MEDS: LEVOFLOXACIN 250MG PREMIX 50 ML IV SCH (10:33)
[2022-02-20] MEDS: ENOXAPARIN 100MG/ML SYR SUBCUT SCH ×2 (10:34→20:33)
[2022-02-20] MEDS: KCL 20MEQ/100ML PREMIX 100 ML IV SCH ×4 (12:44→20:33)
[2022-02-20] MEDS: SODIUM CHLORIDE 0.9% 1,000 ML IV SCH (17:11)
[2022-02-20] MEDS: AMIODARONE HCL 200 MG TABLET PO SCH (23:40)
[2022-02-21] VITALS (98 sets, daily range): BP systolic 82–195; BP diastolic 48–137
[2022-02-21] MEDS: NITROPRUSSIDE 100 MG in DEXT 5% WATER 246 ML IV PRN ×3 (01:08→15:00)
[2022-02-21] MEDS: DILTIAZEM HCL 90MG TABLET PO SCH (06:13)
[2022-02-21] MEDS: CLONIDINE 0.1MG TABLET PO SCH ×3 (06:13→22:55)
[2022-02-21] MEDS: SODIUM CHLORIDE 0.9% 1,000 ML IV SCH ×2 (06:13→21:00)
[2022-02-21 06:31] LABS: INR 1.1; PROTHROMBIN TIME 11.8 sec (9.6-11.0)
[2022-02-21] MEDS: LEVOFLOXACIN 250MG PREMIX 50 ML IV SCH (08:47)
[2022-02-21] MEDS: AMIODARONE HCL 200 MG TABLET PO SCH ×2 (08:47→21:30)
[2022-02-21] MEDS: METRONIDAZOLE 500 MG PREMIX 100 ML IV SCH ×2 (08:47→21:30)
[2022-02-21] MEDS: HYDRALAZINE HCL 50MG TABLET PO SCH ×3 (08:49→17:14)
[2022-02-21] MEDS: THIAMINE HCL 100MG TABLET PO SCH (08:50)
[2022-02-21] MEDS: ENOXAPARIN 100MG/ML SYR SUBCUT SCH ×2 (08:51→21:31)
[2022-02-21] MEDS: ONDANSETRON HCL 4MG/2ML INJ IV PRN ×2 (09:24→13:14)
[2022-02-22] VITALS (76 sets, daily range): BP systolic 108–191; BP diastolic 39–121
[2022-02-22] MEDS: CLONIDINE 0.1MG TABLET PO SCH ×3 (05:21→21:15)
[2022-02-22] MEDS: MORPHINE SULFATE 2 MG/ML CPJ (NOT FOR IM USE) IV PRN ×2 (06:07→06:37)
[2022-02-22] MEDS: METRONIDAZOLE 500 MG PREMIX 100 ML IV SCH ×2 (08:30→21:15)
[2022-02-22] MEDS: LEVOFLOXACIN 250MG PREMIX 50 ML IV SCH (08:30)
[2022-02-22] MEDS: HYDRALAZINE HCL 50MG TABLET PO SCH ×3 (08:31→17:12)
[2022-02-22] MEDS: THIAMINE HCL 100MG TABLET PO SCH (08:31)
[2022-02-22] MEDS: ENOXAPARIN 100MG/ML SYR SUBCUT SCH ×2 (08:31→21:15)
[2022-02-22] MEDS: AMIODARONE HCL 200 MG TABLET PO SCH ×2 (08:31→21:15)
[2022-02-22] MEDS: SODIUM CHLORIDE 0.9% 1,000 ML IV SCH ×2 (10:04→22:30)
[2022-02-22] MEDS: POTASSIUM CHLORIDE 20MEQ TABLET SR PO SCH (10:04)
[2022-02-22] MEDS: DILTIAZEM HCL 30MG TABLET PO SCH ×2 (13:08→21:15)
[2022-02-22] MEDS: HYDRALAZINE 20MG/ML VIAL IV PRN (23:24)
[2022-02-23] VITALS (15 sets, daily range): BP systolic 126–178; BP diastolic 68–108
[2022-02-23] MEDS: SODIUM CHLORIDE 0.9% 1,000 ML IV SCH (02:10)
[2022-02-23] MEDS: DILTIAZEM HCL 30MG TABLET PO SCH ×3 (05:18→22:24)
[2022-02-23] MEDS: CLONIDINE 0.1MG TABLET PO SCH ×3 (05:18→22:16)
[2022-02-23 05:24] LABS: BASOPHILS % 0.3 % (0.0-2.0); EOSINOPHILS % 0.5 % (0.0-5.0); HEMATOCRIT. 36.2 % (42.0-52.0); LYMPHOCYTES % 16.3 % (20.0-50.0); MEAN CORPUSCULAR HEMOGLOBIN 30.7 pg (28.0-32.0); MEAN CORPUSCULAR VOLUME 92.6 fL (80.0-94.0); MEAN PLATELET VOLUME 8.4 fl (7.4-10.4); MONOCYTES % 8.4 % (2.0-8.0); NEUTROPHILS % 74.5 % (40.0-76.0); PLATELET 267 x1000/uL (130-400); RED CELL DISTRIBUTION WIDTH 14.7 % (11.6-14.6)
[2022-02-23 05:50] LABS: PHOSPHORUS 2.4 mg/dL (2.5-4.9)
[2022-02-23] MEDS: POTASSIUM CHLORIDE 20MEQ TABLET SR PO SCH (08:39)
[2022-02-23] MEDS: THIAMINE HCL 100MG TABLET PO SCH (08:39)
[2022-02-23] MEDS: ENOXAPARIN 100MG/ML SYR SUBCUT SCH ×2 (08:40→22:18)
[2022-02-23] MEDS: HYDRALAZINE HCL 50MG TABLET PO SCH ×3 (08:40→19:10)
[2022-02-23] MEDS: AMIODARONE HCL 200 MG TABLET PO SCH ×2 (08:41→22:07)
[2022-02-23] MEDS: METRONIDAZOLE 500 MG PREMIX 100 ML IV SCH (09:27)
[2022-02-23] MEDS: LEVOFLOXACIN 250MG PREMIX 50 ML IV SCH (09:29)
[2022-02-23] MEDS: METRONIDAZOLE 500MG TABLET PO SCH (22:07)
[2022-02-23] MEDS ORDERED: HYDR100T26 PO (22:46)
[2022-02-23] MEDS ORDERED: FURO-151 PO (22:48)
[2022-02-24] VITALS: BP 142/106
[2022-02-24 04:00] VITALS: BP 151/117
[2022-02-24] MEDS: CLONIDINE 0.1MG TABLET PO SCH (06:31)
[2022-02-24] MEDS: DILTIAZEM HCL 30MG TABLET PO SCH (06:32)
[2022-02-24] MEDS ORDERED: APIX2.5T PO (07:04)
[2022-02-24] MEDS ORDERED: DILT180T11 MT (07:07)
[2022-02-24 08:00] VITALS: BP 125/84
[2022-02-24] MEDS ORDERED: APIX5TAB PO (08:52)
[2022-02-24] MEDS: AMIODARONE HCL 200 MG TABLET PO SCH (08:58)
[2022-02-24] MEDS: METRONIDAZOLE 500MG TABLET PO SCH (08:58)
[2022-02-24] MEDS: HYDRALAZINE HCL 50MG TABLET PO SCH (08:58)
[2022-02-24] MEDS: POTASSIUM CHLORIDE 20MEQ TABLET SR PO SCH (08:59)
[2022-02-24] MEDS: SODIUM CHLORIDE 0.9% 1,000 ML IV SCH (08:59)
[2022-02-24] MEDS ORDERED: DILTIAZEM HCL 120MG CAPSULE ER 24HR PO SCH (09:00)
[2022-02-24] MEDS ORDERED: APIXABAN 5 MG TABLET PO SCH (09:00)
[2022-02-24] MEDS: THIAMINE HCL 100MG TABLET PO SCH (09:07)
[2022-02-24 09:47] LABS: BASOPHILS % 0.6 % (0.0-2.0); EOSINOPHILS % 1.3 % (0.0-5.0); HEMATOCRIT. 37.1 % (42.0-52.0); HEMOGLOBIN. 12.3 g/dL (14.0-18.0); LYMPHOCYTES % 17.4 % (20.0-50.0); MEAN CORPUSCULAR HEMOGLOBIN 30.4 pg (28.0-32.0); MEAN PLATELET VOLUME 8.3 fl (7.4-10.4); MONOCYTES % 8.4 % (2.0-8.0); NEUTROPHILS % 72.3 % (40.0-76.0); PLATELET 296 x1000/uL (130-400); RED BLOOD CELL COUNT 4.04 mill/uL (4.7-6.1); RED CELL DISTRIBUTION WIDTH 14.4 % (11.6-14.6)
[2022-02-24 10:22] VITALS: BP 125/84
[2022-02-24 10:37] LABS: CHLORIDE 109 mEq/L (98-107)
[2022-02-24] MEDS ORDERED: LEVOFLOXACIN 250MG TABLET PO SCH (11:00)
[2022-02-26] MEDS ORDERED: CLONIDINE HCL 0.2MG/24HR PATCH TD SCH (09:00)
== END 2022-02-24 11:30 | disposition home or self-care (01) | DRG 871 ==
LOC: ER 21:09 → EDBEDREQ 02-19 03:06 → UNDOADMIN 02-19 05:42 → MICUSO 02-19 05:42 → CVICU 02-19 18:25 → 3WST 02-23 09:20
PROVIDERS: ADMIT Internal Medicine Nephrology; ATTEND Internal Medicine Nephrology
DX: A41.9 Sepsis, unspecified organism (principal); N17.0 Acute kidney failure with tubular necrosis; E87.20 Acidosis, unspecified; I16.1 Hypertensive emergency; N12 Tubulo-interstitial nephritis, not specified as acute or chronic; K52.9 Noninfective gastroenteritis and colitis, unspecified; E66.9 Obesity, unspecified; D63.8 Anemia in other chronic diseases classified elsewhere; I12.9 Hypertensive chronic kidney disease with stage 1 through stage 4 chronic kidney disease, or unspecified chronic kidney disease; N18.9 Chronic kidney disease, unspecified; I48.91 Unspecified atrial fibrillation; K80.20 Calculus of gallbladder without cholecystitis without obstruction; D73.5 Infarction of spleen; Z68.30 Body mass index [BMI] 30.0-30.9, adult; Z87.442 Personal history of urinary calculi; Z88.8 Allergy status to other drugs, medicaments and biological substances
CPT/HCPCS: 36415; 71045; 74176; 76700; 80048; 80053; 80305; 80320; 83605; 83735; 84100; 84145; 84443; 84484; 85025; 93005; 93306; 99285; J0153; J0282; J0360; J1160; J1170; J1650; J1940; J1956; J2270; J2405; J3480; J3490; J7030; J7060; G0480

== ENCOUNTER 2023-06-01 07:21 | Inpatient (IN) | payer BC, MEDICAID ==
[~2023-06-01] VITALS: Ht 180.3 cm; Wt 106.2 kg
[~2023-06-01 07:21] MED LIST changes: +APIX2.5T PO; +APIX5TAB PO; +DILT180T11 MT; +FURO-151 PO; +HYDR100T26 PO; -HYDR25TA PO
[2023-06-01 07:35] VITALS: O2SAT 100
[2023-06-01 07:54] LABS: BASOPHILS % 0.8 % (0.0-2.0); EOSINOPHILS % 1.1 % (0.0-5.0); HEMATOCRIT. 46.6 % (42.0-52.0); HEMOGLOBIN. 15.5 g/dL (14.0-18.0); LYMPHOCYTES % 21.2 % (20.0-50.0); MEAN CORPUSCULAR HEMOGLOBIN 30.8 pg (28.0-32.0); MEAN CORPUSCULAR HGB CONC 33.2 g/dL (31.0-37.0); MEAN CORPUSCULAR VOLUME 92.9 fL (80.0-94.0); MEAN PLATELET VOLUME 9.2 fl (7.4-10.4); MONOCYTES % 6.4 % (2.0-8.0); NEUTROPHILS % 70.5 % (40.0-76.0); PLATELET 197 x1000/uL (130-400); RED BLOOD CELL COUNT 5.02 mill/uL (4.7-6.1); RED CELL DISTRIBUTION WIDTH 16.3 % (11.6-14.6); WHITE BLOOD COUNT 5.2 x1000/uL (4.5-11.0)
[2023-06-01] MEDS: ONDANSETRON HCL 4MG/2ML INJ IV ONE (08:15)
[2023-06-01] MEDS: HYDRALAZINE 20MG/ML VIAL IV ONE (08:15)
[2023-06-01] MEDS: MAGNESIUM/ALUMINUM HYDROXIDE/SIMETHICONE 30ML UDC PO ONE (08:15)
[2023-06-01] MEDS: FAMOTIDINE 20MG/2ML VIAL IV ONE (08:15)
[2023-06-01 08:50] LABS: ALANINE AMINOTRANSFERASE 33 IU/L (10-49); ALBUMIN 4.9 g/dL (3.2-4.8); ASPARTATE AMINOTRANSFERASE 41 IU/L (<34); BILIRUBIN TOTAL 1.5 mg/dL (0.1-1.0); CALCIUM 9.2 mg/dL (8.7-10.4); CARBON DIOXIDE 26 mEq/L (21-32); CHLORIDE 107 mEq/L (98-107); CREATININE 2.1 mg/dL (0.6-1.3); GLUCOSE 112 mg/dL (70-105); POTASSIUM 4.1 mEq/L (3.5-5.1); PROTEIN TOTAL 8.5 g/dL (6.0-8.3); SODIUM 140 mEq/L (136-145); UREA NITROGEN BLOOD 17 mg/dL (9-23)
[2023-06-01 08:53] LABS: TROPONIN I HIGH SENSITIVITY 58 ng/L (3.0-53)
[2023-06-01] MEDS: ASPIRIN 325MG EC TABLET PO NR (09:26)
[2023-06-01] MEDS ORDERED: DILTIAZEM HCL 5MG/ML 5ML VIAL IV ONE (09:45)
[2023-06-01] MEDS: CEFTRIAXONE 1GM/50ML 50 ML IV NR (09:56)
[2023-06-01] MEDS: DILTIAZEM HCL 5MG/ML 5ML VIAL IV NR ×2 (10:00→16:56)
[2023-06-01] MEDS: METRONIDAZOLE 500 MG PREMIX 100 ML IV NR (10:41)
[2023-06-01 12:19] LABS: CLARITY URINE CLEAR (CLEAR); COLOR URINE YELLOW (YELLOW); GLUCOSE URINE NEGATIVE (NEGATIVE); KETONES URINE NEGATIVE (NEGATIVE); LEUKOCYTE ESTERASE URINE NEGATIVE (NEGATIVE); NITRITE URINE NEGATIVE (NEGATIVE); OCCULT BLOOD URINE NEGATIVE (NEGATIVE); PH URINE 7.5 (4.5-8.0); PROTEIN URINE 1+ (NEGATIVE); SPECIFIC GRAVITY URINE 1.015 (1.005-1.030); UROBILINOGEN URINE 0.2 E.U./dL (0.2-1.0)
[2023-06-01] MEDS ORDERED: ONDANSETRON HCL 4MG/2ML INJ IV PRN (12:30)
[2023-06-01] MEDS ORDERED: ACETAMINOPHEN 325MG TABLET PO PRN (12:30)
[2023-06-01] MEDS ORDERED: MAGNESIUM/ALUMINUM HYDROXIDE/SIMETHICONE 30ML UDC PO PRN (12:30)
[2023-06-01] MEDS ORDERED: GUAIFENESIN 200MG/10ML SUGAR FREE UDC PO PRN (12:30)
[2023-06-01] MEDS ORDERED: IPRATROPIUM/ALBUTEROL 0.5-3(2.5)MG/3ML NEB HHN PRN (12:30)
[2023-06-01] MEDS ORDERED: METRONIDAZOLE 500 MG PREMIX 100 ML IV SCH (12:30)
[2023-06-01 12:37] LABS: SQUAMOUS EPITHELIAL CELL URINE RARE /lpf (RARE/1+)
[2023-06-01 12:38] LABS: BACTERIA URINE NONE SEEN; RBC URINE NONE SEEN /hpf (0-2); WBC URINE 0-2 /hpf (0-2)
[2023-06-01 13:14] VITALS: BP 154/103; PULSE 102; RESP 18; TEMP 98.1
[2023-06-01 13:16] VITALS: BP 154/103; PULSE 90; RESP 18; TEMP 98.1
[2023-06-01] MEDS ORDERED: IBUPROFEN 800 MG/8 ML VIAL IV SCH (13:30)
[2023-06-01] MEDS ORDERED: LISI40TA13 PO (14:13)
[2023-06-01] MEDS ORDERED: ATOR40TA70 PO (14:13)
[2023-06-01] MEDS ORDERED: IBUP-2029 PO (14:16)
[2023-06-01] MEDS ORDERED: FURO20TA4 PO (14:16)
[2023-06-01] MEDS ORDERED: CLON0.2T PO (14:16)
[2023-06-01] MEDS ORDERED: HYDR100T31 PO (14:16)
[2023-06-01] MEDS ORDERED: FUROSEMIDE 20MG TABLET PO SCH (15:30)
[2023-06-01 16:00] VITALS: BP 198/144; PULSE 87; RESP 19; TEMP 98.1
[2023-06-01] MEDS: PANTOPRAZOLE SODIUM 40 MG/VIAL IV SCH (16:52)
[2023-06-01] MEDS: LISINOPRIL 40MG TABLET PO SCH (16:55)
[2023-06-01] MEDS: LACTATED RINGERS 1,000 ML IV ONE (17:00)
[2023-06-01] MEDS: APIXABAN 5 MG TABLET PO SCH (17:02)
[2023-06-01] MEDS: CLONIDINE 0.1MG TABLET PO PRN (17:02)
[2023-06-01] MEDS: METRONIDAZOLE 500MG TABLET PO SCH (17:02)
[2023-06-01] MEDS ORDERED: NALOXONE HCL 0.4MG/ML VIAL IV PRN (17:15)
[2023-06-01] MEDS ORDERED: MORPHINE SULFATE 2 MG/ML CPJ (NOT FOR IM USE) IV PRN (17:15)
[2023-06-01] MEDS: LACTATED RINGERS 1,000 ML IV SCH (17:35)
[2023-06-01 20:00] VITALS: BP 137/101; PULSE 64; RESP 20; TEMP 97.9
[2023-06-01 20:51] LABS: TROPONIN I HIGH SENSITIVITY 70 ng/L (3.0-53)
[2023-06-01 21:18] VITALS: BP 176/116; PULSE 66; RESP 14
[2023-06-01] MEDS: ATORVASTATIN CALCIUM 40MG TABLET PO SCH (21:26)
[2023-06-01] MEDS: HYDRALAZINE HCL 100MG TABLET PO SCH (21:27)
[2023-06-01] MEDS: CLONIDINE 0.2MG TABLET PO SCH (23:04)
[2023-06-01] MEDS: SODIUM CHLORIDE 45ML SPRAY NS PRN (23:57)
[2023-06-02] VITALS: BP 171/112; PULSE 106; RESP 22; TEMP 98.1
[2023-06-02] MEDS: ACETAMINOPHEN 325MG TABLET PO PRN (00:06)
[2023-06-02 00:07] LABS: CREATINE KINASE MB FRACTION 8.7 ng/mL (0.5-3.6)
[2023-06-02] MEDS: HYDRALAZINE HCL 100MG TABLET PO SCH (00:07)
[2023-06-02 01:30] VITALS: BP 103/77; PULSE 96; RESP 12
[2023-06-02 01:51] LABS: CLARITY URINE CLEAR (CLEAR); COLOR URINE YELLOW (YELLOW); GLUCOSE URINE NEGATIVE (NEGATIVE); KETONES URINE NEGATIVE (NEGATIVE); LEUKOCYTE ESTERASE URINE NEGATIVE (NEGATIVE); NITRITE URINE NEGATIVE (NEGATIVE); OCCULT BLOOD URINE NEGATIVE (NEGATIVE); PROTEIN URINE NEGATIVE (NEGATIVE); SPECIFIC GRAVITY URINE 1.008 (1.005-1.030); UROBILINOGEN URINE 0.2 E.U./dL (0.2-1.0)
[2023-06-02 01:59] LABS: *AMPHETAMINES SCREEN URINE NEGATIVE (NEGATIVE); *BARBITURATES SCREEN URINE NEGATIVE (NEGATIVE); *BENZODIAZEPINES SCREEN URINE NEGATIVE (NEGATIVE); *COCAINE SCREEN URINE NEGATIVE (NEGATIVE); CANNABINOID URINE SCREEN NEGATIVE (NEGATIVE); ECSTASY MDMA SCREEN URINE NEGATIVE (NEGATIVE); METHADONE URINE SCREEN Neg (NEGATIVE); OPIATES URINE SCREEN NEGATIVE (NEGATIVE); PHENCYCLIDINE URINE SCREEN NEGATIVE (NEGATIVE)
[2023-06-02 04:00] VITALS: BP 117/93; PULSE 97; RESP 19; TEMP 98.1
[2023-06-02] MEDS: FAMOTIDINE 20MG TABLET PO SCH (06:11)
[2023-06-02 07:00] LABS: BASOPHILS % 0.9 % (0.0-2.0); EOSINOPHILS % 1.6 % (0.0-5.0); HEMATOCRIT. 44.4 % (42.0-52.0); HEMOGLOBIN. 14.9 g/dL (14.0-18.0); LYMPHOCYTES % 27.8 % (20.0-50.0); MEAN CORPUSCULAR HEMOGLOBIN 31.1 pg (28.0-32.0); MEAN CORPUSCULAR HGB CONC 33.5 g/dL (31.0-37.0); MEAN PLATELET VOLUME 9.5 fl (7.4-10.4); MONOCYTES % 7.7 % (2.0-8.0); PLATELET 192 x1000/uL (130-400); RED BLOOD CELL COUNT 4.77 mill/uL (4.7-6.1); RED CELL DISTRIBUTION WIDTH 16.1 % (11.6-14.6); WHITE BLOOD COUNT 5.1 x1000/uL (4.5-11.0)
[2023-06-02] MEDS ORDERED: FAMOTIDINE 20MG TABLET PO SCH (07:00)
[2023-06-02 07:51] LABS: ALANINE AMINOTRANSFERASE 20 IU/L (10-49); ALBUMIN 4.1 g/dL (3.2-4.8); ASPARTATE AMINOTRANSFERASE 28 IU/L (<34); BILIRUBIN TOTAL 2.3 mg/dL (0.1-1.0); CALCIUM 8.6 mg/dL (8.7-10.4); CARBON DIOXIDE 26 mEq/L (21-32); CHLORIDE 107 mEq/L (98-107); CHOLESTEROL 141 mg/dL (<200); CREATININE 1.7 mg/dL (0.6-1.3); GLUCOSE 88 mg/dL (70-105); HDL CHOLESTEROL 41 mg/dL (>55); LDL CHOLESTEROL 77 mg/dL (5-100); POTASSIUM 3.6 mEq/L (3.5-5.1); PROTEIN TOTAL 6.6 g/dL (6.0-8.3); SODIUM 139 mEq/L (136-145); THYROID STIMULATING HORMONE 1.52 uIU/mL (0.55-4.78); TRIGLYCERIDE 87 mg/dL (0-150); UREA NITROGEN BLOOD 12 mg/dL (9-23)
[2023-06-02 08:00] VITALS: BP 171/112; PULSE 78; RESP 26; TEMP 98.6
[2023-06-02] MEDS: CEFTRIAXONE 1GM/50ML 50 ML IV SCH (10:00)
[2023-06-02 12:00] VITALS: BP 171/112; PULSE 106; RESP 22; TEMP 98.1
[2023-06-02] MEDS ORDERED: SODIUM CHLORIDE 0.9% 1,000 ML IV SCH (12:30)
[2023-06-02 13:10] LABS: PROTHROMBIN TIME 11.4 sec (9.6-11.0)
[2023-06-02] MEDS ORDERED: ENOXAPARIN 100MG/ML SYR SUBCUT SCH (21:00)
== END 2023-06-02 10:30 | disposition left against medical advice (07) | DRG 444 ==
LOC: ER 07:21 → 3WST 10:18 → EDBEDREQTM 10:27 → EDBEDREQ 10:27
PROVIDERS: ADMIT Internal Medicine Nephrology; ATTEND Internal Medicine Nephrology
DX: K81.0 Acute cholecystitis (principal); I21.A1 Myocardial infarction type 2; N17.9 Acute kidney failure, unspecified; I13.0 Hypertensive heart and chronic kidney disease with heart failure and stage 1 through stage 4 chronic kidney disease, or unspecified chronic kidney disease; I48.92 Unspecified atrial flutter; I16.1 Hypertensive emergency; N18.4 Chronic kidney disease, stage 4 (severe); K30 Functional dyspepsia; I50.9 Heart failure, unspecified; E11.22 Type 2 diabetes mellitus with diabetic chronic kidney disease; E78.5 Hyperlipidemia, unspecified; I48.91 Unspecified atrial fibrillation; E80.6 Other disorders of bilirubin metabolism; K57.90 Diverticulosis of intestine, part unspecified, without perforation or abscess without bleeding; Z53.29 Procedure and treatment not carried out because of patient's decision for other reasons; Z53.20 Procedure and treatment not carried out because of patient's decision for unspecified reasons; M54.30 Sciatica, unspecified side; Z91.010 Allergy to peanuts; Z87.891 Personal history of nicotine dependence; Z79.01 Long term (current) use of anticoagulants; Z99.2 Dependence on renal dialysis
CPT/HCPCS: 36415; 74176; 76705; 80053; 80061; 80305; 81003; 82550; 82553; 83036; 83880; 84439; 84443; 84484; 85025; 85379; 93005; 93306; 99285; C9113; J0360; J0696; J2405; J3490; J7120

== ENCOUNTER 2023-09-18 13:44 | Emergency (ER) | payer MEDICAID ==
[~2023-09-18] VITALS: Ht 180.3 cm; Wt 106.6 kg
[~2023-09-18 13:44] MED LIST changes: -APIX2.5T PO; +ATOR40TA70 PO; +CLON0.2T PO; -CLON0.3T PO; -DILT180T11 MT; -FURO-151 PO; +FURO20TA4 PO; -HYDR100T26 PO; +HYDR100T31 PO; +IBUP-2029 PO
[2023-09-18 13:53] VITALS: O2SAT 98
[2023-09-18 14:32] VITALS: BP 147/129; PULSE 64; RESP 16; TEMP 98.7
[2023-09-18] MEDS: AMLODIPINE 5MG TABLET PO ONE (14:33)
== END 2023-09-18 14:33 | disposition home or self-care (01) ==
LOC: ER 14:07
DX: I10 Essential (primary) hypertension (principal); Z00.00 Encounter for general adult medical examination without abnormal findings; Z88.6 Allergy status to analgesic agent; Z88.2 Allergy status to sulfonamides; Z79.899 Other long term (current) drug therapy
CPT/HCPCS: 99281